=== PATIENT | male | born 2000 ===

== ENCOUNTER 2019-06-22 18:49 | Day surgery (SDC) | payer BC ==
[2019-06-22] MEDS ORDERED: Sodium Chloride 0.9% 1,000 ML IV ONE (19:11)
--- NOTE | 2019-06-22 19:37 | EDM.PDOC ---
ED HPI GENERAL MEDICAL PROBLEM - General Chief Complaint: General Stated Complaint: SOMETHING STUCK IN HIS ESOPHAGUS Time Seen by Provider: 06/22/19 19:06 - History of Present Illness INITIAL COMMENTS - FREE TEXT/NARRATIVE: HPI 18-year-old male with a history of esophageal strictures s/p dilation and food impaction 4 presents with inability to swallow (liquid or solid food) since noon when a piece of ham that he was eating became stuck in his mid-throat. Denies chest pain or further symptoms. ROS with no recent constitutional symptoms. Exam HR 73, RR 18, BP 129/74, T 37.2C, SaO2 90% on room air. Gen: Pleasant, non-toxic appearing, resting comfortably HEENT: NC, AT, PEERL, EOMI. Oropharynx visually normal. Tolerating secretions. Resp: Clear to auscultation bilaterally. Unlabored respirations with a normal work of breathing. Card: Regular rate and rhythm. Extremities warm and well perfused. GI: Non-distended. : Deferred MSK: No visible deformities, strength and tone without visually appreciable deficit. Neuro: alert and oriented 3, no facial asymmetry, vision and hearing WNL. Heme/Lymph: Deferred Skin: Normal color with no visible lesions (other than noted above). Psych: Mood and affect appropriate. Imaging: CXR: no acute cardiopulmonary abnormalities. Radiologist read pending. MDM Previous chart, nursing note, and vitals reviewed. A: 18-year-old male with a history of esophageal strictures s/p dilation and food impaction 4 presents with inability to swallow (liquid or solid food) since noon when a piece of ham that he was eating became stuck in his mid throat. DDx & Evaluation: patient unable to tolerate liquids (ED trial), attempted disimpaction with carbonated beverage jumping up and down, this was unsuccessful , 2 mg IV glucagon given, again this was unsuccessful, chest x-ray without evidence of complications. 1 L NS given for hydration. Patient continued to tolerate secretions well in the department. Consulted Dr. Lee, the general surgeon economics consultant, patient accepted for upper GI endoscopy.. Impression: esophageal food impaction. - Related Data Allergies Allergy/AdvReac Type Severity Reaction Status Date / Time banana Allergy Airway Verified 06/22/19 18:51 Tightness cucumber Allergy Airway Verified 06/22/19 18:51 Tightness nuts Allergy Airway Uncoded 06/22/19 18:51 Tightness Home Meds: Home Meds . [No Known Home Meds] 06/22/19 [History] Past Medical History - Past Surgical History GI Surgical History: Reports: EGD, Esophageal Dilatation Social & Family History - Family History Family Medical History: Noncontributory - Tobacco Use Smoking Status *Q: Never Smoker - Recreational Drug Use Recreational Drug Use: No ED ROS GENERAL - Review of Systems Review Of Systems: See Below ED EXAM, GENERAL - Physical Exam Exam: See Below Course - Vital Signs Last Recorded V/S: Last Vital Signs Temp 37.2 C 06/22/19 18:51 Pulse 73 06/22/19 18:51 Resp 18 06/22/19 18:51 BP 129/74 06/22/19 18:51 Pulse Ox 98 06/22/19 18:51 - Orders/Labs/Meds Orders: Active Orders 24 hr Category Date Time Status CXR [Chest 1V Frontal] [CR] Stat Exams 06/22/19 19:11 Taken Sodium Chloride 0.9% [Normal Saline] 1,000 ml Med 06/22/19 19:11 Active IV .Bolus Medication Orders Sodium Chloride (Normal Saline) 1,000 mls @ 1,000 mls/hr IV .Bolus ONE Stop: 06/22/19 20:10 Last Admin: 06/22/19 19:24 Dose: 1,000 mls/hr Meds: Medications Generic Name Dose Route Start Last Admin Trade Name Freq PRN Reason Stop Dose Admin Sodium Chloride 1,000 mls @ 1,000 mls/hr 06/22/19 19:11 06/22/19 19:24 Normal Saline IV 06/22/19 20:10 1,000 mls/hr .Bolus ONE Administration Departure - Departure Time of Disposition: 19:36 Disposition: Admitted As Inpatient 65 Clinical Impression: Food impaction of esophagus - Discharge Information Sepsis Event Note - Evaluation Sepsis Screening Result: No Definite Risk - Focused Exam Vital Signs: Vital Signs Temp Pulse Resp BP Pulse Ox 06/22/19 18:51 37.2 C 73 18 129/74 98 Date Exam was Performed: 06/22/19 Time Exam was Performed: 19:36 - My Orders Last 24 Hours: My Active Orders 06/22/19 19:11 CXR [Chest 1V Frontal] [CR] Stat Sodium Chloride 0.9% [Normal Saline] 1,000 ml IV .Bolus - Assessment/Plan Last 24 Hours: My Active Orders 06/22/19 19:11 CXR [Chest 1V Frontal] [CR] Stat Sodium Chloride 0.9% [Normal Saline] 1,000 ml IV .Bolus
--- NOTE | 2019-06-22 20:16 | PCM.PREANE ---
Preanesthetic Assessment - Anesthesia/Transfusion/Family Hx Anesthesia History: Prior Anesthesia Without Reaction Family History of Anesthesia Reaction: No - Physical Assessment NPO Status Date: 06/22/19 NPO Status Time: 12:00 Vital Signs: Last Vital Signs Temp 37.2 C 06/22/19 18:51 Pulse 74 06/22/19 20:04 Resp 18 06/22/19 20:04 BP 123/77 06/22/19 20:04 Pulse Ox 98 06/22/19 20:04 Height: 1.78 m Weight: 72.575 kg ASA Class: 1E - Allergies Allergies/Adverse Reactions: Allergies Allergy/AdvReac Type Severity Reaction Status Date / Time banana Allergy Airway Verified 06/22/19 18:51 Tightness cucumber Allergy Airway Verified 06/22/19 18:51 Tightness nuts Allergy Airway Uncoded 06/22/19 18:51 Tightness - Acknowledgements Anesthesia Type Planned: General Anesthesia Pt an Appropriate Candidate for the Planned Anesthesia: Yes Alternatives and Risks of Anesthesia Discussed w Pt/Guardian: Yes Pt/Guardian Understands and Agrees with Anesthesia Plan: Yes PreAnesthesia Questionnaire - Past Surgical History GI Surgical History: Reports: EGD, Esophageal Dilatation - SUBSTANCE USE Smoking Status *Q: Never Smoker Recreational Drug Use History: No - HOME MEDS Home Medications: Home Meds . [No Known Home Meds] 06/22/19 [History] - CURRENT (IN HOUSE) MEDS Current Meds: Current Medications Discontinued Medications Sodium Chloride (Normal Saline) 1,000 mls @ 1,000 mls/hr IV .Bolus ONE Stop: 06/22/19 20:10 Last Admin: 06/22/19 19:24 Dose: 1,000 mls/hr
--- NOTE | 2019-06-22 20:16 | CR ---
Chest: AP view of the chest was obtained. Comparison: No prior chest x-ray. Heart size and mediastinum are normal. Lungs are clear. Bony structures are unremarkable. Impression: 1. Nothing acute is seen on AP chest x-ray. Diagnostic code #1 This report was dictated in [place] Standard Time
--- NOTE | 2019-06-22 20:20 | PCM.CONS ---
H&P History of Present Illness - General Date of Service: 06/22/19 Admit Problem/Dx: Admission Diagnosis/Problem Admission Diagnosis/Problem Food impaction of esophagus Esophageal foreign body obstruction Source of Information: Patient History Limitations: Reports: No Limitations - History of Present Illness Onset of Symptoms: Reports: Today Symptom Onset Date: 06/22/19 Symptom Onset Time: 12:00 Duration of Symptoms: Reports: Hour(s):, Constant, Recurring Location: Reports: Chest Quality: Reports: Same as Previous Episode Severity: Moderate Improves with: Reports: None Worsens with: Reports: None Associated Symptoms: Reports: No Other Symptoms - Related Data Allergies/Adverse Reactions: Allergies Allergy/AdvReac Type Severity Reaction Status Date / Time banana Allergy Airway Verified 06/22/19 18:51 Tightness cucumber Allergy Airway Verified 06/22/19 18:51 Tightness nuts Allergy Airway Uncoded 06/22/19 18:51 Tightness Home Medications: Home Meds . [No Known Home Meds] 06/22/19 [History] Past Medical History - Past Surgical History GI Surgical History: Reports: EGD, Esophageal Dilatation Social & Family History - Family History Family Medical History: Noncontributory - Tobacco Use Smoking Status *Q: Never Smoker - Recreational Drug Use Recreational Drug Use: No H&P Review of Systems - Review of Systems: Review Of Systems: See Below General: Denies: Fever, Chills, Malaise, Weakness, Fatigue HEENT: Reports: No Symptoms Pulmonary: Denies: Shortness of Breath, Wheezing, Pleuritic Chest Pain Cardiovascular: Reports: No Symptoms Gastrointestinal: Reports: Anorexia, Difficulty Swallowing. Denies: Abdominal Pain, Black Stool, Bloody Stool, Constipation, Diarrhea, Decreased Appetite, Distension, Flatus, Hematemesis, Hematochezia Genitourinary: Reports: No Symptoms Musculoskeletal: Reports: No Symptoms Skin: Reports: No Symptoms Psychiatric: Reports: No Symptoms Neurological: Reports: No Symptoms Hematologic/Lymphatic: Reports: No Symptoms Immunologic: Reports: No Symptoms Exam - Exam Exam: See Below - Vital Signs Vital Signs: Last Vital Signs Temp 98.9 F 06/22/19 18:51 Pulse 74 06/22/19 20:04 Resp 18 06/22/19 20:04 BP 123/77 06/22/19 20:04 Pulse Ox 98 06/22/19 20:04 Weight: 160 lb - Exam General: Alert, Oriented, Cooperative, Mild Distress HEENT: Conjunctiva Clear, Pupils Equal, Pupils Reactive. No: Scleral Icterus Neck: Supple, Trachea Midline Lungs: Clear to Auscultation, Normal Respiratory Effort Cardiovascular: Regular Rate, Regular Rhythm, Normal S1, Normal S2. No: Tachycardia GI/Abdominal Exam: Normal Bowel Sounds, Soft, Non-Tender (Male) Exam: No Hernia Rectal (Males) Exam: Deferred Back Exam: Normal Inspection, Full Range of Motion Extremities: Normal Inspection, Normal Range of Motion Peripheral Pulses: 4+: Posterior Tibial (L), Posterior Tibial (R), Dorsalis Pedis (L), Dorsalis Pedis (R) Skin: Warm, Dry, Intact Neurological: Cranial Nerves Intact Neuro Extensive - Mental Status: Alert, Oriented x3, Normal Mood/Affect Psychiatric: Alert, Normal Affect, Normal Mood Sepsis Event Note - Evaluation Sepsis Screening Result: No Definite Risk - Focused Exam Vital Signs: Vital Signs Temp Pulse Resp BP Pulse Ox 06/22/19 20:04 74 18 123/77 98 06/22/19 18:51 98.9 F 73 18 129/74 98 Date Exam was Performed: 06/22/19 Time Exam was Performed: 20:16 Consult PN Assessment/Plan (1) Food impaction of esophagus SNOMED Code(s): 401152085 Code(s): T18.128A - FOOD IN ESOPHAGUS CAUSING OTHER INJURY, INITIAL ENCOUNTER Priority: High Current Visit: No Qualifiers: Encounter type: initial encounter Qualified Code(s): T18.128A - Food in esophagus causing other injury, initial encounter Problem List Initiated/Reviewed/Updated: Yes My Orders Last 24 Hours: My Active Orders 06/22/19 20:16 Oxygen Therapy [RC] PRN Vital Signs [RC] PER UNIT ROUTINE Resuscitation Status Routine 06/22/19 20:30 Lactated Ringers @ 125 MLS/HR(1000ml) Lactated Ringers [Ringers, Lactated] 1, 000 ml IV ASDIRECTED 06/22/19 Dinner Nothing per Oral After Midnight Diet [DIET] Plan: Esophagogastroduodenoscopy with removal of esophageal foreign body and biopsy. The operative procedure, along with the risks, including, but not limited to, bleeding, perforation, and the need for surgery were discussed with the patient who voices understanding, offers no questions and wishes to proceed.
[2019-06-22] MEDS ORDERED: Propofol 200 MG/20 ML SDV ONE (20:22)
[2019-06-22] MEDS ORDERED: Midazolam 1 MG/ML 2 ML SDV ONE (20:22)
[2019-06-22] MEDS ORDERED: fentaNYL 100 MCG/2 ML SDV ONE (20:22)
[2019-06-22] MEDS ORDERED: Ketorolac 30 MG/ML SDV ONE (20:24)
[2019-06-22] MEDS ORDERED: Lidocaine 2% 5 ML SDV ONE (20:24)
[2019-06-22] MEDS ORDERED: Lactated Ringers 1,000 ML IV SCH ×2 (20:30→21:00)
--- NOTE | 2019-06-22 20:58 | PCM.OPNOTE ---
- General Post-Op/Procedure Note Date of Surgery/Procedure: 06/22/19 Operative Procedure(s): Esophagogastroduodenoscopy with esophageal foreign body removal and gastric biopsy Pre Op Diagnosis: Foreign body obstruction of the esophagus Post-Op Diagnosis: Foreign body obstruction of the esophagus. Esophageal stricture. Esophageal dysmotility. Anesthesia Technique: General ET Tube (ASA IE) Primary Surgeon: Donald Lee Condition: Stable Free Text/Narrative:: DICTATION 398357 CPT CODE 87556
--- NOTE | 2019-06-22 21:19 | PCM.POSTAN ---
POST ANESTHESIA ASSESSMENT - MENTAL STATUS Mental Status: Alert - VITAL SIGNS Vital Signs: Last Vital Signs Temp 37.2 C 06/22/19 18:51 Pulse 83 06/22/19 21:09 Resp 21 H 06/22/19 21:09 BP 97/60 06/22/19 21:09 Pulse Ox 97 06/22/19 21:09 - RESPIRATORY Respiratory Status: Respiratory Rate WNL - CARDIOVASCULAR CV Status: Pulse Rate WNL - GASTROINTESTINAL GI Status: No Symptoms - POST OP HYDRATION Hydration Status: Adequate & Stable
--- NOTE | 2019-06-22 21:25 | PCM48HPAN ---
Post Anesthesia Note - EVALUATION WITHIN 48HRS OF ANESTHETIC Vital Signs in Normal Range: Yes Patient Participated in Evaluation: Yes Respiratory Function Stable: Yes Airway Patent: Yes Cardiovascular Function Stable: Yes Hydration Status Stable: Yes Pain Control Satisfactory: Yes Nausea and Vomiting Control Satisfactory: Yes Mental Status Recovered: Yes Vital Signs: Last Vital Signs Temp 37.2 C 06/22/19 18:51 Pulse 82 06/22/19 21:18 Resp 12 06/22/19 21:18 BP 109/71 06/22/19 21:18 Pulse Ox 98 06/22/19 21:18
--- NOTE | 2019-06-23 02:41 | OR ---
SURGEON: Donald Lee M.D. DATE OF PROCEDURE: 06/22/2019 OPERATION PERFORMED: Esophagogastroduodenoscopy with foreign body removal and gastric biopsy. PRIMARY SURGEON: Donald Lee MD. ANESTHESIA: General endotracheal. ASA CLASSIFICATION: IE. PREOPERATIVE DIAGNOSIS: Esophageal foreign body obstruction. POSTOPERATIVE DIAGNOSES: 1. Esophageal foreign body obstruction. 2. Esophageal dysmotility. 3. Esophageal stricture. DESCRIPTION OF PROCEDURE: The patient was taken to the operating room and placed on the operating table in the supine position. Time-out was called for appropriate identification of the patient and procedure. Following satisfactory attainment of general endotracheal anesthesia, the bite block was placed between the patient's teeth. The gastroscope was inserted through the bite block into the oropharynx and advanced with minimal difficulty through the esophagus to the foreign body. I initially attempted to push this through with the scope, but it would not go. I then used the biopsy forceps in an attempt to go through the foreign body and was able to easily advance the foreign body through the esophagus into the stomach. The gastroscope was then advanced through the remainder of the esophagus and stomach into the duodenum and examination carried out in a retrograde fashion. The duodenum shows no acute inflammatory changes or ulcerations. The stomach does show [id number] gastritis. Antral biopsies were obtained to look for the presence of Helicobacter pylori. The gastroscope was retroflexed to visualize the proximal stomach. No ulcers were noted. No hiatal hernia was noted. The foreign body was noted in the stomach. The gastroscope was then straightened and slowly withdrawn. The GE junction is sharply defined and shows no acute inflammatory changes. In the midportion of the esophagus, there is a very small cicatricial scar. The scope traverses this area quite easily and I could not feel any resistance to the passage of the scope. The scope was left in position at approximately 30 to 35 cm for 2 to 3 minutes, and we did not see any substantial esophageal stripping waves. It should be noted the patient had been given succinylcholine for intubation. After several minutes, the scope was then removed. As the patient was intubated, the vocal cords were not visualized. The gastroscope was then removed with the patient having tolerated the procedure well. Following emergence from anesthesia and extubation, the patient was taken to recovery room in stable condition. VAHID / BERTO /[id number] LEANA
== END 2019-06-22 23:17 | disposition home or self-care (01) ==
LOC: MW.ED 18:49
PROVIDERS: ATTEND Surgery
DX: T18.128A Food in esophagus causing other injury, initial encounter (principal); K22.2 Esophageal obstruction; K22.4 Dyskinesia of esophagus; K29.50 Unspecified chronic gastritis without bleeding; X58.XXXA Exposure to other specified factors, initial encounter; Z91.018 Allergy to other foods; Z91.010 Allergy to peanuts; Z98.890 Other specified postprocedural states
CPT/HCPCS: 43239; 43247; 71045; 88305; 88312; 96360; 99284; J0330; J1885; J2001; J2250; J2704; J3010; J7030; J7120; 00731; 99283